=== PATIENT | male | born 1950 | race Caucasian/White ===

== ENCOUNTER 2019-05-01 10:50 | Observation (INO) ==
[2019-05-01 11:45] LABS: Hematocrit 18.5 % (37.5-50.1); Hemoglobin 6.1 g/dL (12.9-16.9); Mean Corpuscular Hemoglobin 31.3 pg (28.0-33.3); Mean Corpuscular Volume 94.9 fL (83.0-100.0); Mean Platelet Volume 10.7 fL (9.4-12.4); Platelet Count 296 K/mcL (140-400); Red Blood Count 1.95 M/mcL (4.19-5.50); Red Cell Distribution Width 14.9 % (11.5-14.5); White Blood Count 14.5 K/mcL (4.3-11.1)
[2019-05-01 11:55] LABS: BUN/Creatinine Ratio 38 (6-26); Blood Urea Nitrogen 27 mg/dL (8-23); Calcium 8.7 mg/dL (8.6-10.3); Carbon Dioxide 24 mEq/L (23-29); Chloride 98 mEq/L (98-107); Glucose 134 mg/dL (70-105); Osmolality,Calculated 265 (280-300); Potassium 4.4 mEq/L (3.5-5.1); Sodium 124 mEq/L (136-145); eGFR For African Americans > 60 (> 60); eGFR For Non-African Americans > 60 (> 60)
[2019-05-01] MEDS ORDERED: 0.9 % Sodium Chloride 500 ML IVC ONE (12:11)
[2019-05-01 12:23] LABS: INR 1.1; Prothrombin Time 12.2 Seconds (9.4-12.1)
[2019-05-01 12:26] LABS: Activated Partial Thrombo Time 23.2 Seconds (26.0-36.0)
[2019-05-01] MEDS: 0.9 % Sodium Chloride 1,000 ML IVC SCH ×2 (12:27→21:27)
[2019-05-01 13:06] LABS: % Iron Saturation 11 % (20-55); Iron 41 mcg/dL (65-175); Transferrin 258 mg/dL (203-362)
[2019-05-01] MEDS ORDERED: Naloxone 0.4 MG/ML INJ IVP PRN (13:35)
[2019-05-01 13:42] LABS: Folate > 22.3 ng/mL (3.0-16.0); Vitamin B12 386 pg/mL (250-1100)
[2019-05-01] MEDS ORDERED: *HR* Promethazine 25 MG/ML VIAL IVP PRN (13:45)
[2019-05-01] MEDS ORDERED: Ondansetron 4 MG/2 ML VIAL IVP PRN (13:45)
[2019-05-01] MEDS ORDERED: 0.9 % Sodium Chloride 250 ML ONE ×2 (14:07→17:32)
[2019-05-01 14:37] LABS: Bilirubin,Urine Negative (Negative); Blood,Urine Negative (Negative); Clarity,Urine Clear (Clear); Color,Urine Yellow (Yellow); Glucose,Urine (UA) Normal (Normal); Ketones,Urine Negative (Negative); Leukocyte Esterase,Urine Negative (Negative); Nitrite,Urine Negative (Negative); Protein,Urine Negative (Neg-Trace); Specific Gravity,Urine 1.023 (1.010-1.025); Urobilinogen,Urine Normal (Normal)
[2019-05-01 15:08] LABS: Basophils % 0.3 %; Eosinophils # 0.2 K/mcL (0.0-0.6); Eosinophils % 1.1 %; Immature Granulocytes % 4.1 % (0-4); Lymphocytes # 2.4 K/mcL (0.6-4.6); Lymphocytes % 16.1 %; Monocytes # 1.1 K/mcL (0.0-1.3); Monocytes % 7.6 %; Neutrophils # 10.6 K/mcL (1.6-8.9); Nucleated Red Blood Cells 0.3 /100 WBC (0); Segmented Neutrophils % 70.8 %
[2019-05-01] MEDS: Gabapentin 300 MG CAPSULE PO SCH ×2 (15:56→21:28)
[2019-05-01] MEDS: Pantoprazole 40 MG in 0.9 % Sodium Chloride Mini Bag 100 ML IVC SCH ×2 (17:28→21:28)
[2019-05-01] MEDS: *HR* HYDROcodone/Acet 7.5/325 mg TABLET PO PRN (17:57)
[2019-05-01 23:22] LABS: Hematocrit 22.7 % (37.5-50.1); Hemoglobin 7.4 g/dL (12.9-16.9)
[2019-05-02] MEDS ORDERED: Pantoprazole 40 MG VIAL ONE (02:33)
[2019-05-02] MEDS: Pantoprazole 40 MG in 0.9 % Sodium Chloride Mini Bag 100 ML IVC SCH ×5 (02:47→22:37)
[2019-05-02 04:37] LABS: INR 1.1; Prothrombin Time 12.5 Seconds (9.4-12.1)
[2019-05-02 04:38] LABS: Hematocrit 20.8 % (37.5-50.1); Mean Corpuscular HGB Conc 33.7 g/dL (31.6-35.5); Mean Corpuscular Hemoglobin 31.1 pg (28.0-33.3); Mean Corpuscular Volume 92.4 fL (83.0-100.0); Mean Platelet Volume 10.3 fL (9.4-12.4); Platelet Count 242 K/mcL (140-400); Red Blood Count 2.25 M/mcL (4.19-5.50); Red Cell Distribution Width 15.5 % (11.5-14.5); White Blood Count 12.7 K/mcL (4.3-11.1)
[2019-05-02 04:39] LABS: Hematocrit 21.4 % (37.5-50.1)
[2019-05-02 04:40] LABS: Activated Partial Thrombo Time 25.3 Seconds (26.0-36.0)
[2019-05-02 04:54] LABS: BUN/Creatinine Ratio 25 (6-26); Blood Urea Nitrogen 18 mg/dL (8-23); Calcium 8.3 mg/dL (8.6-10.3); Carbon Dioxide 23 mEq/L (23-29); Chloride 102 mEq/L (98-107); Glucose 102 mg/dL (70-105); Osmolality,Calculated 268 (280-300); Sodium 128 mEq/L (136-145); eGFR For African Americans > 60 (> 60); eGFR For Non-African Americans > 60 (> 60)
[2019-05-02] MEDS: *HR* HYDROcodone/Acet 7.5/325 mg TABLET PO PRN ×3 (05:04→19:04)
[2019-05-02] MEDS ORDERED: 0.9 % Sodium Chloride 250 ML ONE (05:51)
[2019-05-02] MEDS: Gabapentin 300 MG CAPSULE PO SCH ×3 (08:27→21:15)
[2019-05-02 10:43] LABS: Hematocrit 26.4 % (37.5-50.1)
[2019-05-02 10:45] LABS: Hemoglobin 8.8 g/dL (12.9-16.9)
[2019-05-02] MEDS ORDERED: *HR* Propofol 200 MG/20 ML VIAL IVP ONE (11:19)
[2019-05-02] MEDS ORDERED: Lidocaine -MPF 2% 2 ML VIAL ONE ×2 (11:19→11:20)
[2019-05-02 11:48] LABS: Hematocrit 26.5 % (37.5-50.1); Hemoglobin 8.7 g/dL (12.9-16.9)
[2019-05-02] MEDS: 0.9 % Sodium Chloride 1,000 ML IVC SCH (12:07)
[2019-05-02 22:01] LABS: Sodium, Urine 36.2 mEq/L
[2019-05-02] MEDS ORDERED: Acetaminophen 325 MG TABLET PO SCH (23:45)
[2019-05-03] MEDS: 0.9 % Sodium Chloride 1,000 ML IVC SCH ×2 (02:07)
[2019-05-03] MEDS: Pantoprazole 40 MG in 0.9 % Sodium Chloride Mini Bag 100 ML IVC SCH (04:17)
[2019-05-03 04:29] LABS: Hematocrit 26.2 % (37.5-50.1); Hemoglobin 8.6 g/dL (12.9-16.9)
[2019-05-03] MEDS: Gabapentin 300 MG CAPSULE PO SCH ×2 (07:51→14:14)
[2019-05-03] MEDS: *HR* HYDROcodone/Acet 7.5/325 mg TABLET PO PRN (07:51)
[2019-05-03 10:47] VITALS: BP 156/72
[2019-05-03] MEDS ORDERED: Isovue-370 500 ML BOTTLE PO ONE (10:50)
[2019-05-03] MEDS ORDERED: Metoprolol XL (24 HR) Succ 50 MG TAB.ER.24H PO SCH (13:30)
== END 2019-05-03 14:18 | disposition home or self-care (01) ==
LOC: SUATTDRO → 3ANU 10:50 → EMEROOARM 10:50 → SUATTDRO 13:45 → 3ANU 14:40
PROVIDERS: ADMIT Family Medicine; ATTEND Internal Medicine